=== PATIENT | male | born 1950 | race Caucasian/White ===

== ENCOUNTER 2019-12-15 16:23 | Inpatient (IN) | payer MEDICARE ==
[~2019-12-15] VITALS: Ht 175.3 cm; Wt 76.2 kg
[2019-12-15] MEDS ORDERED: LAMO100T17 PO (18:34)
[2019-12-15 19:00] VITALS: BP 114/74
--- NOTE | 2019-12-15 19:30 | NUR ---
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 MD ADMITTING ORDERS TO FOLLOW, [address] FOR PLAN OF SELF HARM. CONTRABAND CHECK AND KEPT FOR SAFETY, ADMISSION FORMS PROVIDED, PATIENT SIGNED CONSENT FORMS, BELONGINGS CHECK, AND ROOM ORIENTATION. PATIENT IS ALERT, X3, DEPRESSED, BEING MONITOR EVERY 15 MINUTES FOR SAFETY. WILL CONTINUE TO PROVIDE CARE.
--- NOTE | 2019-12-15 20:00 | NUR ---
GPS/RN NEW ADMISSION NOTES CONTINUATION PATIENT REQUESTED NOT TO PROVIDE INFORMATION TO THE SON AT THIS TIME ABOUT HIS ADMISSION. PATIENT ALERT AND WELL GROOMED. PATIENT DENIES ANY SUICIDAL IDEATIONS, ON ROOM AIR RESPIRATIONS EVEN AND UNLABORED, WITH NO S/S OF DISTRESS, LYING IN BED AND REPORTED NO PAIN BUT ABLE TO GET UP AND WALK WITH STEADY GAIT. PATIENT ADMITTED UNDER [facility] OF [facility] AND [facility] EDUCATED TO THE USE OF CALL CORRALES. PATIENT BED IS LOCKED AND IN LOW POSITION AND TO CONTINUE TO MONITOR Q 15 MIN WITH STAFF FOR SAFETY.
--- NOTE | 2019-12-15 20:05 | NUR ---
Psych ADMIITING DOCTOR RADHA
[2019-12-15] MEDS ORDERED: ACETAMINOPHEN 325 MG TABLET PO PRN (20:30)
[2019-12-15] MEDS ORDERED: ZOLPIDEM TARTRATE 5 MG TABLET PO PRN (20:30)
[2019-12-15] MEDS ORDERED: MAG HYDROX/AL HYDROX/SIMETH 30 ML UDC PO PRN (20:30)
[2019-12-15] MEDS ORDERED: MAGNESIUM HYDROXIDE 30 ML UDC PO PRN (20:30)
[2019-12-15 20:39] VITALS: BP_SYST 113; BP_SYST 125; BP_DIAS 74
[2019-12-15] MEDS ORDERED: BUPR300T52 PO (20:40)
[2019-12-15] MEDS ORDERED: IBUP200C5 PO (20:42)
[2019-12-15] MEDS ORDERED: BLOOD SUGAR DIAGNOSTIC 1 EACH STRIP IN ONE (21:30)
--- NOTE | 2019-12-15 22:34 | NUR ---
GPS RN NOTE, PATIENT HAS A COMPLAINT OF GENERALIZED PAIN AND STATES, " I TAKE ADVIL OR MOTRIN AT HOME ". PAGED [facility] AND INFORMED [facility] OF MY FINDINGS. [facility] HOLMChrist[facility] ORDER TO GIVE MOTRIN 800 MG PO Q8HR PRN. ALL ORDERS NOTED AND CARRIED OUT. WILL CONTINUE TO MONITOR THIS PATIENT WITH THE HELP OF STAFF.
[2019-12-15] MEDS ORDERED: IBUPROFEN 800 MG TABLET PO PRN (23:00)
--- NOTE | 2019-12-16 01:05 | NUR ---
[facility] NARES SWAB. URINE COLLECTED AND LAB WAS MADE AWARE.
[2019-12-16 02:31] LABS: APPEARANCE,URINE Clear (CLEAR); BILIRUBIN,URINE Negative (NEGATIVE); BLOOD, URINE Negative Ery/uL (NEGATIVE); COLOR,URINE Yellow (YELLOW); KETONES,URINE Trace (NEGATIVE); LEUKOCYTE ESTERASE ,URINE Negative (NEGATIVE); NITRITE, URINE Negative (NEGATIVE); PROTEIN,URINE Negative (NEGATIVE); UGLUCOSE Negative (NEGATIVE)
[2019-12-16 02:46] LABS: BACTERIA,URINE Few /HPF (None Seen); RBC,URINE 0-2 /HPF (0-2); SQUAMOUS EPITHELIAL CELL,UR Rare /HPF (None Seen)
--- NOTE | 2019-12-16 07:02 | NUR ---
GPS RN OPENING NOTE RECEIVED PATIENT AWAKE IN BED AT THIS TIME. AO X 3. PT ABLE TO VERBALIZE NEEDS. NO SOB NOTED, NO S/S OF ANY ACUTE DISTRESS NOTED, NO C/O PAIN AT THIS TIME, RESPIRATIONS EVEN AND UNLABORED. CALM COOPERATIVE, PATIENT DENIES ANY SI/HI AT THIS TIME. SAFETY PRECAUTIONS IN PLACE, BED IN LOWEST LOCKED POSITION, BED ALARM ON, HOB ELEVATED TO SEMI FOWLERS POSITION, CALL LIGHT WITHIN REACH,WILL CONTINUE WITH PLAN OF CARE AND CONTINUE TO MONITOR
[2019-12-16] MEDS ORDERED: IBUPROFEN 400 MG TABLET PO PRN (07:03)
[2019-12-16 08:00] VITALS: BP 107/72
[2019-12-16] MEDS: NICOTINE PATCH (21MG) 21 MG PATCH.TD24 TD SCH (09:00)
[2019-12-16] MEDS ORDERED: LamoTRIgine 100 MG TABLET PO SCH (09:00)
--- NOTE | 2019-12-16 11:21 | NUR ---
Family Contact: SW called the pts son, Mathew ([phone]), and discussed the pts treatment plan and the pts initial discharge plan. SW informed him that the pt stated that he has been living with the son for the past week and that it is not a good environment for the both of them. JOHN stated that the pt would like to return to the [facility] and the pts son stated that would be best and provided the SW with the contact information for Dolly Carver case management social worker ([phone]).
--- NOTE | 2019-12-16 11:25 | NUR ---
[facility] Contact: JOHN contacted Dolly Carver ([phone]), disease case manager rn, and she stated that she is familiar with this pt but believes that he will not benefit from returning to the [facility] and stated that he would not be readmitted.
--- NOTE | 2019-12-16 13:54 | NUR ---
Initial Discharge Plan: Pt currently resides with his son, Mathew ([phone]), who resides at [address] [place] [address], [facility] [address], [place] [address]; ([phone]). Per pt, he would like to return to the [facility]. SW will work with the pt and the MD regarding appropriate discharge planning. SW will form a safe and proper discharge.
[2019-12-16 14:32] LABS: BASOPHILS % (AUTO) 0.5 % (0.0-2.0); EOSINOPHILS % (AUTO) 4.9 % (0.0-6.0); HEMATOCRIT 45 % (39-51); HEMOGLOBIN 15.6 g/dL (13.5-17.5); LYMPHOCYTES # (AUTO) 1.5 /CMM (0.8-4.8); LYMPHOCYTES % (AUTO) 23.6 % (20.0-44.0); MEAN CORPUSCULAR HGB CONC 35 g/dl (31.0-36.0); MEAN CORPUSCULAR VOLUME 104 fL (80-96); MONOCYTES # (AUTO) 0.5 /CMM (0.1-1.30); MONOCYTES % (AUTO) 7.4 % (2.0-12.0); NEUTROPHILS # (AUTO) 3.9 /CMM (1.8-8.9); NEUTROPHILS % (AUTO) 63.6 % (43.0-81.0); PLATELET COUNT (AUTO) 163 /CMM (150-450); RED BLOOD CELL COUNT(AUTO) 4.33 MIL/uL (4.5-6.0); WHITE BLOOD COUNT (AUTO) 6.1 K/uL (4.3-11.0)
--- NOTE | 2019-12-16 15:27 | NUR ---
GROUP NOTE/INDIVIDUAL SESSION: SW encouraged the pt to participate in group therapy but pt is withdrawn/isolated with depressed mood. Pt refused to attend stating he wanted to stay in his room and not ready to talk in a group setting. SW provided individual intervention and assessed for suicidal urges. Pt stated that at this time he was thinking about it but did not have a plan. SW discussed positive coping mechanisms, however, pt was withdrawn. SW will continue to assess for suicidal urges.
[2019-12-16 16:00] VITALS: BP 100/56
[2019-12-16 17:19] LABS: CALCIUM, SERUM 8.6 mg/dL (8.5-10.1); POTASSIUM 4.2 mmol/L (3.5-5.1)
[2019-12-16] MEDS: QUETIAPINE FUMARATE 100 MG TABLET PO SCH (18:01)
--- NOTE | 2019-12-16 18:55 | NUR ---
GPS RN CLOSING NOTE PATIENT RESTING IN BED AT THIS TIME. PT REMAINED STABLE THROUGHOUT SHIFT, ALL NEEDS, CARE, TREATMENT AND MEDICATIONS ADMINISTERED ANTICIPATED PER ORDER. PT REMAINED CALM COOPERATIVE AND COMPLAINT TO CARE, SAFETY PRECAUTIONS IN PLACE, BED IN LOWEST LOCKED POSITION, BED ALARM ON, HOB ELEVATED TO SEMI FOWLERS POSITION, CALL LIGHT WITHIN REACH. WILL ENDORSE TO STEM MAKER NURSE FOR MALINA
[2019-12-16 20:51] VITALS: BP 94/56
[2019-12-16] MEDS: LamoTRIgine 25 MG TABLET PO SCH (21:24)
[2019-12-17 08:00] VITALS: BP 110/70
[2019-12-17] MEDS: NICOTINE PATCH (21MG) 21 MG PATCH.TD24 TD SCH (09:00)
[2019-12-17] MEDS: LamoTRIgine 25 MG TABLET PO SCH ×2 (09:07→20:48)
[2019-12-17] MEDS: buPROPion SR 100 MG TABLET.ER PO SCH (09:07)
[2019-12-17 16:00] VITALS: BP 113/72
[2019-12-17] MEDS: QUETIAPINE FUMARATE 100 MG TABLET PO SCH (17:07)
[2019-12-17 20:07] VITALS: BP 106/68
[2019-12-18 08:00] VITALS: BP 110/66
[2019-12-18] MEDS: NICOTINE PATCH (21MG) 21 MG PATCH.TD24 TD SCH ×2 (08:46→08:49)
[2019-12-18] MEDS: LamoTRIgine 25 MG TABLET PO SCH ×2 (08:46→20:32)
[2019-12-18] MEDS: buPROPion SR 100 MG TABLET.ER PO SCH (08:46)
[2019-12-18] MEDS: LORAZEPAM 1 MG TABLET PO PRN ×2 (08:51→20:46)
--- NOTE | 2019-12-18 08:51 | NUR ---
RN NOTE- PT W ANXIETY. ATIVAN 1 MG GIVEN
--- NOTE | 2019-12-18 09:00 | NUR ---
RN NOTE- PT ANXIOUS PARANOID GUARDED THOUGH DIRECTABLE AND INTERACTIVE,. 'I DONT FEEL VERY GOOD' HE STATED. ANXIETY TX W ATIVAN. MED COMPLIANT, DENIES ALL
[2019-12-18 16:00] VITALS: BP 110/73
[2019-12-18] MEDS: LIDOCAINE 5% (PATCH) 1 EA PATCH TP SCH (16:38)
[2019-12-18] MEDS: QUETIAPINE FUMARATE 100 MG TABLET PO SCH (17:18)
[2019-12-18 20:17] VITALS: BP 117/77
--- NOTE | 2019-12-19 06:33 | NUR ---
RN GPS CLOSING NOTES, PATIENT SLEEP MOSTLY ALL NIGHT, NO ACUTE DISTRESS NOTED, COOPERATIVE AND CALM, BUT PARANOIC AT TIMES, ATIVAN PRN GIVEN LAST NIGHT PER HIS REQUEST, MED COMPLIANT, WILL ENDORSE CONTINUITY OF CARE TO ONCOMING NURSE.
[2019-12-19 08:00] VITALS: BP 134/55
[2019-12-19] MEDS: NICOTINE PATCH (21MG) 21 MG PATCH.TD24 TD SCH (08:14)
[2019-12-19] MEDS: LamoTRIgine 25 MG TABLET PO SCH ×2 (08:14→20:23)
[2019-12-19] MEDS: buPROPion SR 100 MG TABLET.ER PO SCH (08:14)
--- NOTE | 2019-12-19 09:00 | NUR ---
RN NOTE- PT CALM THIS MORNING INTERACTIVE BLUNTED AFFECT FAIR EYE CONTACT SHOULDER PAIN DECREASED WITH LIDOCAINE PATCH. PO INTAKE GOOD MED COMPLIANT WITHDRAWN DENIES SI HI AH VH
[2019-12-19] MEDS: LORAZEPAM 1 MG TABLET PO PRN (15:22)
--- NOTE | 2019-12-19 15:26 | NUR ---
RN NOTE- PT C/O ANXIETY AND SHOULDER PAIN. ATIVAN 1 MG AND MOTRIN 800MG GIVEN
[2019-12-19 16:00] VITALS: BP 123/79
--- NOTE | 2019-12-19 16:09 | NUR ---
Group Note: SW encouraged the pt to participate in group therapy on 12/19/19 but the pt stated, "I feel too anxious and depressed. I just want to lay in my bed and be discharged as soon as possible." SW provided the pt with an individual session at bedside and discussed his potential discharge options at length. Pt stated that he wanted to go to a PTSD program because he feels that he would benefit the most from that but he stated that the program is not accepting people at this time. Pt stated that even though living with his son was a difficult environment for him, he feels that would be the least stressful one. SW stated that she spoke to his son and he believes that he can support the pt better now that he his arm is doing better and he can move around.
[2019-12-19] MEDS: LIDOCAINE 5% (PATCH) 1 EA PATCH TP SCH (17:12)
[2019-12-19] MEDS: QUETIAPINE FUMARATE 100 MG TABLET PO SCH (17:12)
[2019-12-19 20:10] VITALS: BP 114/77
[2019-12-20 08:00] VITALS: BP 120/76
[2019-12-20] MEDS: NICOTINE PATCH (21MG) 21 MG PATCH.TD24 TD SCH ×2 (08:29→08:32)
[2019-12-20] MEDS: LamoTRIgine 25 MG TABLET PO SCH ×2 (08:29→21:07)
[2019-12-20] MEDS: buPROPion SR 100 MG TABLET.ER PO SCH (08:29)
[2019-12-20] MEDS: LORAZEPAM 1 MG TABLET PO PRN (15:18)
--- NOTE | 2019-12-20 15:19 | NUR ---
RN NOTE: PT C/O INCREASED AGITATION AND ANXIETY. MEDICATED WITH ATIVAN 1MG PO PRN
--- NOTE | 2019-12-20 15:35 | NUR ---
GROUP NOTE: SW encouraged the pt to participate in group therapy, however, pt was asleep and not easily roused by verbal cues.
[2019-12-20 16:00] VITALS: BP 125/77
[2019-12-20] MEDS: QUETIAPINE FUMARATE 100 MG TABLET PO SCH (17:20)
[2019-12-20] MEDS: LIDOCAINE 5% (PATCH) 1 EA PATCH TP SCH (17:20)
[2019-12-20 20:00] VITALS: BP 118/74
[2019-12-21 08:00] VITALS: BP 119/73
[2019-12-21] MEDS: buPROPion SR 100 MG TABLET.ER PO SCH (08:11)
[2019-12-21] MEDS: LamoTRIgine 25 MG TABLET PO SCH ×2 (08:11→21:09)
[2019-12-21] MEDS: LIDOCAINE 5% (PATCH) 1 EA PATCH TP SCH (08:11)
[2019-12-21] MEDS: NICOTINE PATCH (21MG) 21 MG PATCH.TD24 TD SCH ×2 (08:11→08:29)
[2019-12-21] MEDS: LORAZEPAM 1 MG TABLET PO PRN ×2 (10:13→16:21)
--- NOTE | 2019-12-21 13:21 | NUR ---
Family Contact: SW called the pts sonMathew ([phone]), and left a voicemail stating that the pt cannot go back to [facility] and there are no alternative options that the pt is willing to accept. JOHN stated that the pt would like to be discharged back to the son's house so the SW would like to discuss this.
--- NOTE | 2019-12-21 13:27 | NUR ---
Family Contact: Pts son, Mathew ([phone]), called the SW and the SW informed him that [facility] is not accepting the pt and he stated that was fine because he wants the pt to live with him. He then stated that the pt is being discharged tomorrow and needs to know if transportation can be set up or if he has to make the time to pick the pt up. SW stated that she will call him back with confirmed details.
--- NOTE | 2019-12-21 15:00 | NUR ---
Patients TransporterBiomass Plant Technician: JOHN called Malissa ([phone]), pts complex case manager, who stated that she cannot assist with the pts transportation but that she can put in a consult for the pt to be seen at the [facility].
--- NOTE | 2019-12-21 15:01 | NUR ---
Family Contact: JOHN called the pts son, Mathew ([phone]), and confirmed that the pt is being discharged tomorrow and informed him that the pt will need to be picked up so he stated that he would arrive around 12pm.
--- NOTE | 2019-12-21 15:10 | NUR ---
Group Note: SW encouraged the pt to participate in group therapy on 12/21/19 but the pt stated, "I am going to be discharged tomorrow. I do not want to be here anymore, it has not helped me at all." SW stated that she is attempting to connect him to the [facility] so that they can offer him services. Pt stated, "I am used to being on my own. I have always taken care of myself. I just want to be with my son and he is coming to pick me up tomorrow."
[2019-12-21 16:00] VITALS: BP 143/90
--- NOTE | 2019-12-21 16:22 | NUR ---
RN-CO: ATIVAN GIVEN FOR ANXIETY.
[2019-12-21] MEDS: QUETIAPINE FUMARATE 100 MG TABLET PO SCH (17:20)
[2019-12-21 19:40] VITALS: BP 112/89
[2019-12-22 08:00] VITALS: BP 123/85
[2019-12-22] MEDS: buPROPion SR 100 MG TABLET.ER PO SCH (08:23)
[2019-12-22] MEDS: LamoTRIgine 25 MG TABLET PO SCH (08:23)
[2019-12-22] MEDS: NICOTINE PATCH (21MG) 21 MG PATCH.TD24 TD SCH (08:27)
[2019-12-22] MEDS: LORAZEPAM 1 MG TABLET PO PRN (08:51)
[2019-12-22] MEDS ORDERED: KEY,NONCONTROL,TO KEEP IN PYXI 1 EA MC ONE (09:36)
--- NOTE | 2019-12-22 09:46 | NUR ---
Dr. Baldwin gave an order to D/C to son's home at [address] [place] [address], [address], [facility] [address]. To, follow up with the psychiatrist at [facility] located, at [address] [facility] [address], [facility] [address] with the tel#, and to follow up with the traveling construction superintendent Dr. Hinojosa located at [address] [address] with the tel# [phone]. Pt. without distress, denies suicidal and homicidal. Belongings ready and discharge papers ready. Addendum: 12/22/19 at [address]8 [address] RN [address]. Baldwin will call in the prescriptions to [facility] at [address] [facility], [facility] [address] with the tel# of [phone] and the fax # [phone].
--- NOTE | 2019-12-22 11:18 | NUR ---
Patricio Foote made aware of the discharge and d/c meds. Pt. signed the discharged papers and belongings ready. Pt. without distress, denies suicidal and homicidal.
--- NOTE | 2019-12-22 12:15 | NUR ---
Pt. left the unit with belongings and escorted by staff to the lobby. Left without distress, ambulatory and on stable condition. Pt. was picked by son Lakhwindermeggantarun Nimesh. Pt. instructed to make a follow up with psych and medical doctors and advised that psychiatrist will call in the prescriptions. V/s taken : BP 130/90, MA 94, RR 18, temp 98.0 and oxygen sat 94%.
--- NOTE | 2019-12-22 15:06 | NUR ---
Discharge Note: Pt was discharged to his sons home located at [address] [place] [address], [address], [place] [address]; ([phone]). Pts son, Mathew ([phone]), picked up the pt around 12pm. Upon discharge, the pt appears to be in a euthymic mood and presents with a calm affect. Pt appears to be alert and oriented x4 (time, place, self and situation). Pt appears to be disheveled, distressed, and ungroomed. Pt denied visual/auditory hallucinations and denied suicidal/homicidal ideation. SW provided the pt with substance abuse referrals that are listed below. Pt will be under the care of [facility] located at [address] [facility] [address], [place] [address]; and integrative medicine physician, Dr. Hinojosa, located at [address] [place] [address]; ; fax of records was sent to: [phone]. Substance Abuse Referrals: [facility] [address] [place] [address] Tel. [facility] [place] [address] [place] Provider Mental Health Treatment Tele-dermatology HIV Services Telemedicine Services [place] [address] [place] [address] [facility] [address] [place] [address]
--- NOTE | 2019-12-22 15:22 | NUR ---
[facility] Contact: JOHN faxed clinical notes to Diana from the [facility] to the fax number: [phone].
--- NOTE | 2019-12-22 15:44 | NUR ---
Discharge Note: Discharge Note: Pt was discharged to his sons home located at [address] [place] [address], [address], [place] [address]; ([phone]). Pts son, Mathew ([phone]), picked up the pt around 12pm. Upon discharge, the pt appears to be in a euthymic mood and presents with a calm affect. Pt appears to be alert and oriented x4 (time, place, self and situation). Pt appears to be disheveled, distressed, and ungroomed. Pt denied visual/auditory hallucinations and denied suicidal/homicidal ideation. SW provided the pt with substance abuse referrals that are listed below. [facility] for psychiatric services located at [address] [place] [address]; and electronic semiconductor processor, Dr. Hinojosa, located at [address] [place] [address]; . Substance Abuse Referrals: [facility] [address] [place] [address] Tel. [facility] [address] [place] Provider Mental Health Treatment Tele-dermatology HIV Services Telemedicine Services [place] [address] [place] [address] [facility] [address] [place] [address]
== END 2019-12-22 12:15 | disposition home or self-care (01) | DRG 885 ==
LOC: GPS 18:08
PROVIDERS: ADMIT Psychiatry & Neurology Psychiatry; ATTEND Nurse Practitioner Acute Care
DX: F31.9 Bipolar disorder, unspecified (principal); R45.851 Suicidal ideations; G89.29 Other chronic pain; Z96.651 Presence of right artificial knee joint; Z98.1 Arthrodesis status; F17.200 Nicotine dependence, unspecified, uncomplicated; Z79.899 Other long term (current) drug therapy; F41.9 Anxiety disorder, unspecified; Z91.5 Personal history of self-harm; F10.10 Alcohol abuse, uncomplicated; Y90.9 Presence of alcohol in blood, level not specified; F15.11 Other stimulant abuse, in remission
CPT/HCPCS: 36415; 80048-TC; 80061-TC; 81000-TC; 82962-TC; 84443-TC; 85025-TC; 87081-TC; 87086-TC; 97116-TC; 97530-TC; A6253